=== PATIENT | female | born 1995 | race Two or more races ===

== ENCOUNTER → 2021-04-28 11:52 | Outpatient (CLI) | payer OTHER, SELFPAY ==
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
== END ==
PROVIDERS: Visit Provider Emergency Medicine
DX: M25.571 Pain in right ankle and joints of right foot (principal); S92.141A Displaced dome fracture of right talus, initial encounter for closed fracture
CPT/HCPCS: 73610; 73630

== ENCOUNTER → 2021-05-20 15:52 | Outpatient (CLI) | payer OTHER, SELFPAY ==
--- NOTE | ~2021-05-20 | MR_ITS ---
EXAMINATION: MR ankle RT wo con DATE: 05/20/2021 16:45 INDICATION: Right ankle sprain TECHNIQUE: Magnetic resonance imaging (MRI) of the right ankle was performed without intravenous cont rast. Sequences included sagittal, coronal, and axial proton-density weighted fast spin echo without and with fat saturation. COMPARISON: None. FINDINGS: Medial ankle ligaments: Posterior aspect of the deep deltoid ligament is normal. There is prominent thickening and mild incre ased signal of the anterior portion of the deep deltoid ligament as well as the superficial deltoid l igament and the superomedial component of the spring ligament complex consistent with scarring relate d to either subacute or chronic sprain. Lateral ankle ligaments: The anterior and posterior inferior tibiofibular ligaments are normal. The posterior talofibular liga ment is normal. Increased signal and prominent thickening of the calcaneofibular ligament with promin ent marrow edema at the lateral aspect of the calcaneus along the ligament footplate consistent with moderate grade subacute sprain. There is also thickening and increased signal along the anterior talo fibular ligament also consistent with subacute sprain. Tendons: Achilles tendon is normal. The peroneus longus and brevis tendons are normal. The tibialis anterior a nd extensor hallucis longus and extensor digitorum longus tendons are normal. The tibialis posterior, flexor digitorum longus and flexor hallucis longus tendons are normal. Plantar fascia: Plantar aponeurosis is normal. Bones/other: There is mild increased fluid signal extending along a nondisplaced mildly comminuted fractures exten d across the midpoint of the talus. This extends to involve the articular surface of the talar dome w here the fracture lines have a Y-shaped configuration without appreciable fracture gap or incongruity . The fracture also extends inferiorly to involve the anterior margin of the posterior facet of the s ubtalar joint where there is a 1.5 mm fracture gap without incongruity. There is marrow edema along t he anterior margin of the tibial plafond and without discrete fracture line which could represent eit her bone contusion or reactive edema related to the anterior capsular avulsion injury. No evident fra cture line associated with the previous noted edema at the lateral aspect of the talus which also ext ends medially along the posterior margin of the posterior facet of the subtalar joint which could rep resent an additional bone contusion. The remaining bones and joint spaces in the visualized mid and h indfoot are unremarkable. Fluid: Residual small amount of likely reactive fluid and synovitis at the recess of the right ankle and sub talar joints. IMPRESSION: 1. Mildly comminuted nondisplaced intra-articular talar fracture involving the talar dome and anterio r margin of the posterior facet of the subtalar joint 2. Marrow edema along the anterior aspect of the tibial plafond and in the calcaneus along the grass cutter ior margin of the posterior facet of the subtalar joint without evident fracture lines which could re present either bone contusions and/or reactive edema related to avulsive injuries of the anterior tib iotalar joint capsule and calcaneal fibular ligament respectively. 2. Moderate grade sprains of the anterior talofibular, calcaneofibular, deep and superficial deltoid ligaments and the superomedial component of the spring ligament complex. Reviewed, dictated and finalized at location A. IMPRESSION: 1. Mildly comminuted nondisplaced intra-articular talar fracture involving the talar dome and anterior margin of the posterior facet of the subtalar joint 2. Marrow edema along the anterior aspect of the tibial plafond
== END ==
PROVIDERS: Visit Provider Podiatrist Foot & Ankle Surgery
DX: S93.421A Sprain of deltoid ligament of right ankle, initial encounter (principal); S82.891A Other fracture of right lower leg, initial encounter for closed fracture
CPT/HCPCS: 73721